=== PATIENT | female | born 1950 | race Caucasian/White ===

== ENCOUNTER 2017-03-11 10:56 | Day surgery (SDC) | payer OTHER ==
[2017-03-10 15:13] VITALS: BMI 30.6
[2017-03-11 14:32] VITALS: TEMP 98
[2017-03-11 15:22] VITALS: BP 157/84; PULSE 58
--- NOTE | 2017-03-13 12:26 | PATH ---
Surgical Pathology Report Patient Name: JOHNNY BARRAZA [facility]. Rec. #: [id number] /Age/Gender: 1950 (Age: 66) / F Account: [id number] Location: [facility]-ENDOSCOPY Taken: 03/11/2017 Received: 03/12/2017 Reported: 03/13/2017 Physicians: Raghu Robbins M.D. Specimen(s) Received BX BODY Clinical History Anemia, GERD Deformed duodenal bulb, erythema body, 2 cm hiatal hernia Final Diagnosis STOMACH, BODY, ERYTHEMA, BIOPSY: GASTRIC OXYNTIC MUCOSA WITH FOCALLY ACTIVE MODERATE CHRONIC GASTRITIS. IMMUNOSTAIN FOR H. PYLORI IS POSITIVE FOR ORGANISMS (MANY ORGANISMS). Electronically Signed Michael Hanks M.D. Gross Description Received in formalin, labeled "biopsy erythema body" are 2 mcmahan, irregular portions of soft tissue averaging 0.3 cm in greatest dimension. The specimens are submitted in toto in one cassette. /03/12/201703/12/2017
== END 2017-03-11 15:27 | disposition home or self-care (01) ==
LOC: JASU-ENDO 10:56
PROVIDERS: ATTEND Internal Medicine Gastroenterology
PROC: 0DB68ZX Excision of Stomach, Via Natural or Artificial Opening Endoscopic, Diagnostic (ICD-10-PCS; principal; 2017-03-11 12:00)
DX: K44.9 Diaphragmatic hernia without obstruction or gangrene (principal); K31.9 Disease of stomach and duodenum, unspecified; R12 Heartburn; D64.9 Anemia, unspecified
CPT/HCPCS: 88305-TC; 88342-TC

== ENCOUNTER 2024-01-05 16:11 | Observation (INO) | payer OTHER ==
[2024-01-05] MEDS ORDERED: ACETAMINOPHEN INJECTION 100 ML IVPB ONE (18:06)
[2024-01-05] MEDS ORDERED: FAMOTIDINE 20 MG/50 ML IVPB 20 MG/50 ML MG IVPB ONE (18:07)
[2024-01-05] MEDS: ACETAMINOPHEN 1000 MG/100 ML BAG IVPB ONE (18:29)
[2024-01-05] MEDS: FAMOTIDINE 20 MG/50 ML IVPB 20 MG/50 ML MG IVPB ONE (18:29)
[2024-01-05 18:47] LABS: BASO % 0.3 % (0-2.0); HEMATOCRIT 30.5 % (32.4-45.2); HEMOGLOBIN 9.9 GM/dL (10.7-15.3); LYMPH % 14.9 % (8-40); MCH 26.5 pg (25.7-33.7); MCHC 32.4 g/dl (32.0-36.0); MEAN CELL VOLUME 81.6 fl (80-96); NEUT % 73.8 % (42.8-82.8); PLATELET COUNT 493 10^3/uL (134-434); RBC 3.73 M/mm3 (3.60-5.2); RDW 15.7 % (11.6-15.6); WHITE BLOOD COUNT 10.3 K/mm3 (4.0-10.0)
[2024-01-05] MEDS: LACTATED RINGERS SOLUTION 1,000 ML/1,000 ML INFUS.BAG IV SCH (18:55)
[2024-01-05 18:57] LABS: POTASSIUM 4.7 mmol/L (3.5-5.1)
[2024-01-05 19:00] LABS: ALBUMIN 2.7 g/dl (3.4-5.0); BLOOD UREA NITROGEN 40.7 mg/dL (7-18); CALCIUM 9.2 mg/dL (8.5-10.1); MAGNESIUM 2.7 mg/dL (1.8-2.4)
[2024-01-05 19:04] LABS: BILIRUBIN,TOTAL 0.4 mg/dL (0.2-1); CREATININE 1.3 mg/dL (0.55-1.3); TOT PROT 7.6 g/dl (6.4-8.2)
[2024-01-05] MEDS ORDERED: guaiFENesin 200 MG/10 ML 10 ML UNIT-DOSE CUPS ONE (20:45)
[2024-01-05] MEDS: guaiFENesin/D-METHORPHAN HB 10 ML UNIT-DOSE CUPS PO ONE (20:48)
[2024-01-05] MEDS ORDERED: guaiFENesin/D-METHORPHAN HB 10 ML UNIT-DOSE CUPS ONE (20:50)
[2024-01-05 20:56] LABS: EPI CELLS 11 /uL (0-25.1); HYALINE CASTS 2 /uL (0-3.1); PH,URINE 5.5 (5.0-8.0); URINE APPEARANCE CLOUDY; URINE BACTERIA 674 /uL (0-1359); URINE BILIRUBIN NEGATIVE (NEGATIVE); URINE COLOR YELLOW; URINE GLUCOSE (UA) NEGATIVE (NEGATIVE); URINE KETONE NEGATIVE (NEGATIVE); URINE LEUK ESTERASE 2+ (NEGATIVE); URINE NITRITE NEGATIVE (NEGATIVE); URINE PROTEIN TRACE (NEGATIVE); URINE UROBILINOGEN 0.2 mg/dL (0.2-1.0); URINE WBC 536 /uL (0-25.8)
[2024-01-05 20:57] LABS: URINE RBC 18.2 /uL (0-23.9)
[2024-01-05] MEDS ORDERED: CEFTRIAXONE 1 GM/50 ML BAG ONE (22:30)
[2024-01-05] MEDS: CEFTRIAXONE 1,000 MG in DEXTROSE 5%-WATER - 50 ML IVPB ONE (22:41)
[2024-01-05 23:22] VITALS: RESP 18
[2024-01-05] MEDS ORDERED: DOCUSATE SODIUM 100 MG CAPSULE (FP) PO PRN (23:49)
[2024-01-05] MEDS ORDERED: ACETAMINOPHEN 1000 MG/100 ML BAG IVPB PRN (23:53)
[2024-01-06] MEDS: SODIUM CHLORIDE 0.45%/POT 20 MEQ/1,000 ML INFUS.BAG IV SCH (04:30)
[2024-01-06 07:51] VITALS: BMI 28.8
[2024-01-06 09:01] LABS: INR 1.12 (0.83-1.09)
[2024-01-06 09:03] LABS: ACTIVATED PTT 22.6 SECONDS (25.2-36.5)
[2024-01-06 09:11] LABS: BASO % 0.4 % (0-2.0); HEMATOCRIT 26.7 % (32.4-45.2); MCH 27.4 pg (25.7-33.7); MCHC 33.9 g/dl (32.0-36.0); MEAN CELL VOLUME 80.7 fl (80-96); MEAN PLT VOLUME 8.5 fl (7.5-11.1); MONO % 9.6 % (3.8-10.2); PLATELET COUNT 467 10^3/uL (134-434); RDW 15.6 % (11.6-15.6)
[2024-01-06 09:37] LABS: POTASSIUM 5.2 mmol/L (3.5-5.1)
[2024-01-06 09:40] LABS: ALBUMIN 2.5 g/dl (3.4-5.0); BLOOD UREA NITROGEN 38.3 mg/dL (7-18); CALCIUM 8.7 mg/dL (8.5-10.1); MAGNESIUM 2.3 mg/dL (1.8-2.4)
[2024-01-06 09:43] LABS: CREATININE 1.4 mg/dL (0.55-1.3); PHOSPHOROUS 3.6 mg/dL (2.5-4.9)
[2024-01-06 09:44] LABS: BILIRUBIN,TOTAL 0.3 mg/dL (0.2-1); TOT PROT 6.6 g/dl (6.4-8.2)
[2024-01-06] MEDS: CEFTRIAXONE 1 GM in DEXTROSE 5%-WATER - 50 ML IVPB SCH (10:40)
[2024-01-06] MEDS: PANTOPRAZOLE 40 MG TABLET PO SCH (12:34)
[2024-01-07] MEDS: SODIUM CHLORIDE 0.45% 1,000 ML IV SCH (04:13)
[2024-01-07 08:55] LABS: HEMATOCRIT 29.1 % (32.4-45.2); HEMOGLOBIN 9.4 GM/dL (10.7-15.3); MCH 26.3 pg (25.7-33.7); MCHC 32.3 g/dl (32.0-36.0); MEAN CELL VOLUME 81.4 fl (80-96); MEAN PLT VOLUME 7.9 fl (7.5-11.1); PLATELET COUNT 518 10^3/uL (134-434); RBC 3.57 M/mm3 (3.60-5.2); RDW 15.4 % (11.6-15.6); WHITE BLOOD COUNT 8.3 K/mm3 (4.0-10.0)
[2024-01-07 09:15] LABS: CALCIUM 9.1 mg/dL (8.5-10.1)
[2024-01-07 09:16] LABS: ALBUMIN 2.7 g/dl (3.4-5.0); BLOOD UREA NITROGEN 24.7 mg/dL (7-18)
[2024-01-07 09:18] LABS: CREATININE 1.1 mg/dL (0.55-1.3)
[2024-01-07 09:21] LABS: BILIRUBIN,TOTAL 0.4 mg/dL (0.2-1); TOT PROT 6.9 g/dl (6.4-8.2)
[2024-01-07] MEDS: cefTRIAXone SODIUM 1 GM VIAL IM ONE (18:05)
[2024-01-08] MEDS: SERTRALINE HCL 25 MG TABLET (FP) PO SCH (09:17)
[2024-01-08] MEDS: SODIUM CHLORIDE 500 ML IV STA (11:30)
[2024-01-08] MEDS: ROSUVASTATIN CA 20 MG TABLET PO SCH (22:38)
[2024-01-09 10:48] VITALS: BP 146/62; PULSE 66; TEMP 98.1
[2024-01-09 11:28] LABS: HEMATOCRIT 29.7 % (32.4-45.2); HEMOGLOBIN 9.8 GM/dL (10.7-15.3); MCH 26.9 pg (25.7-33.7); MEAN CELL VOLUME 81.7 fl (80-96); MEAN PLT VOLUME 8.1 fl (7.5-11.1); PLATELET COUNT 556 10^3/uL (134-434); RBC 3.64 M/mm3 (3.60-5.2); RDW 15.5 % (11.6-15.6); WHITE BLOOD COUNT 7.3 K/mm3 (4.0-10.0)
[2024-01-09 11:47] LABS: POTASSIUM 4.9 mmol/L (3.5-5.1)
[2024-01-09 11:55] LABS: ALBUMIN 2.7 g/dl (3.4-5.0); BLOOD UREA NITROGEN 19.7 mg/dL (7-18)
[2024-01-09 11:58] LABS: CREATININE 0.9 mg/dL (0.55-1.3)
[2024-01-09 12:00] LABS: BILIRUBIN,TOTAL 0.2 mg/dL (0.2-1); TOT PROT 7.4 g/dl (6.4-8.2)
== END 2024-01-09 12:49 | disposition home or self-care (01) ==
LOC: JER 16:11 → JERBED 01-06 02:30 → J7W 01-06 06:55 → J6S 01-07 21:32
PROVIDERS: ADMIT Internal Medicine; ATTEND Family Medicine
PROC: 3E033NZ Introduction of Analgesics, Hypnotics, Sedatives into Peripheral Vein, Percutaneous Approach (ICD-10-PCS; principal; 2024-01-06)
PROC: 3E03329 Introduction of Other Anti-infective into Peripheral Vein, Percutaneous Approach (ICD-10-PCS; 2024-01-06)
PROC: 3E033GC Introduction of Other Therapeutic Substance into Peripheral Vein, Percutaneous Approach (ICD-10-PCS; 2024-01-06)
PROC: 3E0337Z Introduction of Electrolytic and Water Balance Substance into Peripheral Vein, Percutaneous Approach (ICD-10-PCS; 2024-01-06)
DX: N39.0 Urinary tract infection, site not specified (principal); R94.5 Abnormal results of liver function studies; K21.9 Gastro-esophageal reflux disease without esophagitis; R53.1 Weakness; R19.7 Diarrhea, unspecified; D64.89 Other specified anemias; G51.0 Bell's palsy; M19.90 Unspecified osteoarthritis, unspecified site; G61.0 Guillain-Barre syndrome; Z90.49 Acquired absence of other specified parts of digestive tract
CPT/HCPCS: 0241U-QW; 36415; 71045-TC-FY; 74176-TC; 74177-TC; 76705-TC; 76856-TC; 80053; 81003; 82272; 82550; 82656; 82728; 83540; 83550; 83735; 84100; 84439; 84443; 84466; 84484; 85025; 85027; 85610; 85730; 86140; 86705; 86707; 86708; 86709; 87040; 87086; 87186; 87340; 87350; 87517; 87522; 87635; 93005; 93010; 96361; 96365; 96366; 96367; 96375; 97116-GP; 97162-GP; 99285-25; G0378; J0131; J3480